=== PATIENT | male | born 1990 | race Caucasian/White ===

== ENCOUNTER 2017-06-11 22:09 | Emergency (ER) | payer SELFPAY ==
[~2017-06-11] VITALS: Ht 162.6 cm; Wt 68.0 kg
[2017-06-11 22:10] VITALS: BP_SYST 134
[2017-06-11 22:15] VITALS: BP_SYST 129
== END 2017-06-11 22:15 | disposition home or self-care (01) ==
LOC: SED 22:09
DX: Z02.89 Encounter for other administrative examinations (principal); V43.52XA Car driver injured in collision with other type car in traffic accident, initial encounter; Y93.89 Activity, other specified; Y92.89 Other specified places as the place of occurrence of the external cause; Y99.8 Other external cause status
CPT/HCPCS: 99283